=== PATIENT | female | born 1935 | race Caucasian/White ===

== ENCOUNTER 2017-10-12 19:00 | Emergency (ER) | payer MEDICARE ==
[2017-10-12] MEDS ORDERED: LIDOCAINE 5% TOPICAL PATCH TP ONE (19:34)
[2017-10-12] MEDS ORDERED: ACETAMINOPHEN 325 MG TAB ONE (19:35)
[2017-10-12] MEDS ORDERED: TRAMADOL HCL 50 MG TABLET ONE (19:35)
[2017-10-12] MEDS ORDERED: KETOROLAC TROMETHAMINE 15MG/ML ONE (19:36)
[2017-10-12 19:44] LABS: APPEARANCE,URINE Clear (CLEAR); BILIRUBIN,URINE Negative (NEGATIVE); COLOR,URINE Dark Yellow (YELLOW); GLUCOSE, URINE (UA) Negative (NEGATIVE); KETONES,URINE 15 mg/dL (NEGATIVE); LEUKOCYTE ESTERASE ,URINE Negative (NEGATIVE); NITRATE,URINE Negative (NEGATIVE); OCCULT BLOOD,URINE Negative (NEGATIVE); PROTEIN,URINE Negative (NEGATIVE)
[2017-10-12 19:44] LABS: BASOPHILS % (AUTO) 0.5 % (0.0-5.0); EOSINOPHILS % (AUTO) 2.5 % (0.0-8.0); LYMPHOCYTES % (AUTO) 16.1 % (21.0-51.0); MEAN CORPUSCULAR HEMOGLOBIN 33.3 pg (27.0-33.0); MEAN CORPUSCULAR HGB CONC 34.7 g/dL (32.0-36.0); MEAN CORPUSCULAR VOLUME 95.9 fL (79-99); MONOCYTES % (AUTO) 7.3 % (3.0-13.0); NEUTROPHILS % (AUTO) 73.6 % (40.0-77.0); NUCLEATED RED BLOOD CELLS 0.1 % (0.0-0.19); PLATELET COUNT (AUTO) 238 K/uL (130-400); RED BLOOD CELL COUNT(AUTO) 3.65 MIL/uL (4.00-5.50); RED CELL DISTRIBUTION WIDTH 13.7 % (11.0-15.5); WHITE BLOOD COUNT (AUTO) 7.8 K/uL (4.8-10.8)
[2017-10-12 20:05] LABS: B-TYPE NATRIURETIC PEPTIDE 33 pg/mL (0-100)
[2017-10-12] MEDS ORDERED: DIAZEPAM 2 MG TAB ONE (22:30)
== END 2017-10-12 23:04 | disposition home or self-care (01) ==
LOC: EDH 19:00
DX: S29.012A Strain of muscle and tendon of back wall of thorax, initial encounter (principal); M51.26 Other intervertebral disc displacement, lumbar region; E78.5 Hyperlipidemia, unspecified; I10 Essential (primary) hypertension; E11.9 Type 2 diabetes mellitus without complications; Z88.2 Allergy status to sulfonamides; Z85.3 Personal history of malignant neoplasm of breast; Z79.4 Long term (current) use of insulin; Z87.891 Personal history of nicotine dependence; W18.39XA Other fall on same level, initial encounter; Y93.89 Activity, other specified; Y92.89 Other specified places as the place of occurrence of the external cause; Y99.8 Other external cause status
CPT/HCPCS: 36415; 71045; 71250; 80048; 81003; 83880; 84484; 85025; 93005; 96374; 99285; J1885